=== PATIENT | female | born 1985 | race Two or more races ===

== ENCOUNTER 2024-10-07 07:25 | Day surgery (SDC) | payer BC, SELFPAY ==
--- NOTE | 2024-10-02 10:38 | ESHP_ITS ---
RE: MIKO GAMEZ : 1985 DATE OF ADMISSION: 10/14/2024 HISTORY OF PRESENT ILLNESS: This is a 39-year-old gravity 4, para 2-0-2-2 with abnormal uterine bleeding and endometrial polyp who presents for polyp removal and endometrial ablation. The patient has had significant episodes of severe anemia due to her heavy bleeding and this has required blood transfusions in the emergency room setting. She has tried conservative medical management and this has failed to control her bleeding. ALLERGIES: ACCRUFER. MEDICATIONS: 1. Jolessa control pill 1 p.o. daily. 2. Ibuprofen 600 mg 1 p.o. q. 6 hours p.r.n. dysmenorrhea. 3. Ferrous sulfate 325 mg 1 p.o. b.i.d. 4. Ozempic 0.25 mg subcutaneously weekly, discontinued 1 week prior to surgery. PAST MEDICAL HISTORY: Asthma, type 2 diabetes, severe anemia, endometriosis, endometrial polyp. SOCIAL HISTORY: She is . She denies any alcohol drug use or smoking. FAMILY HISTORY: Mother has type 2 diabetes. OBSTETRIC HISTORY: In 2007, 40-week normal vaginal delivery, 6 pounds 7-ounce female, no complications. In 2011, 40-week normal vaginal delivery, 8-pound male, no complications. PAST SURGICAL HISTORY: Denies. REVIEW OF SYSTEMS: She denies any chest pain, palpitations, cough, fever, shortness of breath, or lower extremity pain. PE:see addendum dictation. ASSESSMENT AND PLAN: Abnormal uterine bleeding, Endometrial polyp, Dysmenorrhea, Failed medical management, Episodic Severe Anemia. Hysteroscopy, Myosure removal of endometrial polyp(s), Fractional Dilation and Curettage, Novasure Endometrial Ablation. Consent Obtained. She is aware of the risk of injury to bowel or bladder, uterus, adjacent organs, pulmonary embolism, deep vein thrombosis, pelvic infection, reoperation, repair injury to internal organs, anesthesia complications, the possibility that a laparotomy needs to be performed to repair organs or controlled bleeding and the possibility that the procedure is not able to be completed due to severe adhesions or technical difficulties. She verbalized understanding and agrees to proceed with the procedure with an understanding of the risks and complications. DT: 10:12:30 TT: 10:35:00 Ref: [id number] - TID: [id number] MTDD
[2024-10-06 07:24] VITALS: BMI 41.5
[2024-10-06 08:23] LABS: Basophils % (Auto) 0 % (0-2.5); Eosinophils # (Auto) 0.3 Thou/mm3 (0.0-0.5); Eosinophils % (Auto) 3 % (0-10); Hematocrit 37.1 % (36.0-46.0); Hemoglobin 10.9 g/dL (12.0-16.0); Immature Granulocytes % (Auto) 0 % (0-0); Immature Granulocytes Auto 0.01 Thou/mm3 (0.00-0.00); Lymphocytes # (Auto) 1.9 Thou/mm3 (1.0-4.8); Lymphocytes % (Auto) 23 % (10-50); Mean Corpuscular HGB Conc 29.4 g/dl (31.0-37.0); Mean Corpuscular Volume 75 fL (80-100); Monocytes # (Auto) 0.4 Thou/mm3 (0.0-0.8); Monocytes % (Auto) 5 % (0-12); Neutrophils # (Auto) 5.5 Thou/mm3 (1.8-7.7); Neutrophils % (Auto) 68 % (37-80); Nucleated Red Blood Cell % 0 /100 WBC (0); Platelet Count 268 Thou/mm3 (140-440); RDW Standard Deviation 48.7 fL (36.4-46.3); Red Blood Count 4.96 Miln/mm3 (4.00-5.20)
[2024-10-06 08:29] LABS: Partial Thromboplastin Time 27.1 Seconds (22.0-36.0); Prothrombin Time 10.7 Seconds (9.0-12.2)
[2024-10-06 08:43] LABS: Alanine Aminotransferase 33 U/L (10-49); Albumin, Serum 4.4 gm/dL (3.5-5.0); Albumin/Globulin Ratio 1.5 (1.2-2.2); Alkaline Phosphatase 120 U/L (46-116); Anion Gap 9 (7-16); Aspartate Amino Transferase 28 U/L (0-34); BUN/Creatinine Ratio 13 Ratio (12-20); Beta HCG,Quantitative < 1 mIU/mL (<5.0); Bilirubin,Total 0.2 mg/dL (0.3-1.2); Blood Urea Nitrogen 8 mg/dL (9-23); Calcium 9.1 mg/dL (8.3-10.6); Calcium (Corrected) 9.1 mg/dL (8.5-10.1); Carbon Dioxide 22.6 mMol/L (20.0-31.0); Chloride 106 mMol/L (98-107); Creatinine (Component) 0.6 mg/dL (0.6-1.3); Estimated Creatinine Clearance 136.2 mL/min (>60); Globulin 2.9 gm/dL (2.3-3.5); Glucose 150 mg/dL (74-106); Osmolality,Calculated 276 (275-295); Potassium 3.9 mMol/L (3.4-5.1); Sodium 138 mMol/L (136-145); Total Protein 7.3 gm/dL (5.7-8.2); eGFR > 60 See Note
[2024-10-07] VITALS (8 sets, daily range): BP systolic 113–146; BP diastolic 72–93; PULSE 79–88; RESP 16–20; TEMP 36.3–36.6; O2SAT 95–100; BMI 42.6
--- NOTE | 2024-10-07 06:53 | PD.GYNHP ---
Documentation for date of: 10/07/24 ELECTRONICS ENGINEERING TECHNICIAN - HPI History of Present Illness History of present illness: [address] [id number] History and Physical Report Author: Abhilash Sandoval: MIKO GAMEZ : 1985 DATE OF ADMISSION: 10/07/2024 HISTORY OF PRESENT ILLNESS: This is a 39-year-old gravity 4, para 2-0-2-2 with abnormal uterine bleeding and endometrial polyp who presents for polyp removal and endometrial ablation. The patient has had significant episodes of severe anemia due to her heavy bleeding and this has required blood transfusions in the emergency room setting. She has tried conservative medical management and this has failed to control her bleeding. ALLERGIES: ACCRUFER. MEDICATIONS: 1. Jolessa control pill 1 p.o. daily. 2. Ibuprofen 600 mg 1 p.o. q. 6 hours p.r.n. dysmenorrhea. 3. Ferrous sulfate 325 mg 1 p.o. b.i.d. 4. Ozempic 0.25 mg subcutaneously weekly, discontinued 1 week prior to surgery. PAST MEDICAL HISTORY: Asthma, type 2 diabetes, severe anemia, endometriosis, endometrial polyp. SOCIAL HISTORY: She is . She denies any alcohol drug use or smoking. FAMILY HISTORY: Mother has type 2 diabetes. OBSTETRIC HISTORY: In 2007, 40-week normal vaginal delivery, 6 pounds 7-ounce female, no complications. In 2011, 40-week normal vaginal delivery, 8-pound male, no complications. PAST SURGICAL HISTORY: Denies. REVIEW OF SYSTEMS: She denies any chest pain, palpitations, cough, fever, shortness of breath, or lower extremity pain. PE:see addendum dictation. ASSESSMENT AND PLAN: Abnormal uterine bleeding, Endometrial polyp, Dysmenorrhea, Failed medical management, Episodic Severe Anemia. Hysteroscopy, Myosure removal of endometrial polyp(s), Fractional Dilation and Curettage, Novasure Endometrial Ablation. Consent Obtained. She is aware of the risk of injury to bowel or bladder, uterus, adjacent organs, pulmonary embolism, deep vein thrombosis, pelvic infection, reoperation, repair injury to internal organs, anesthesia complications, the possibility that a laparotomy needs to be performed to repair organs or controlled bleeding and the possibility that the procedure is not able to be completed due to severe adhesions or technical difficulties. She verbalized understanding and agrees to proceed with the procedure with an understanding of the risks and complications. DT: 10:12:30 TT: 10:35:00 Ref: [id number] - TID: [id number] CC: ; ~ Dictated by:Abhilash Sandoval MD 10/02/24 1012 E-signed by:Abhilash Sandoval MD 10/02/24 1051 E-Signed by: E-Signed by: REPORT NO:[id number] Meds Home Medications and Allergies Home Medications ?Medication ?Instructions ?Recorded ?Confirmed ?Type albuterol sulfate 90 mcg/actuation 2 puff inhalation Q4H PRN 10/06/24 10/06/24 History aerosol inhaler shortness of breath or wheezing ferrous sulfate 325 mg (65 mg 325 mg PO BID 10/06/24 10/06/24 History iron) tablet ibuprofen 600 mg tablet 600 mg PO Q8H PRN pain 10/06/24 10/06/24 History levonorgestrel 0.15 mg-ethinyl 1 tab PO QDAY 10/06/24 10/06/24 History estradiol 30 mcg tablets,3 mos pack(91) metformin 500 mg tablet 500 mg PO BID 10/06/24 10/06/24 History semaglutide 0.25 mg or 0.5 mg (2 0.25 mg subcut QWEEK 10/06/24 10/06/24 History mg/3 mL) subcutaneous pen injector (Ozempic) Allergies Allergy/AdvReac Type Severity Reaction Status Date / Time No Known Allergies Allergy Verified 10/06/24 07:18 ELECTRONICS ENGINEERING TECHNICIAN - Results Labs 10/06/24 07:57 10/06/24 07:57 Labs: Short CBC 10/06/24 Range/Units 07:57 WBC 8.0 (3.6-11.0) Thou/mm3 Hgb 10.9 L (12.0-16.0) g/dL Hct 37.1 (36.0-46.0) % Plt Count 268 (140-440) Thou/mm3 BMP 10/06/24 07:57 Sodium 138 Potassium 3.9 Chloride 106 Carbon Dioxide 22.6 BUN 8 L Creatinine 0.6 Glucose 150 H Calcium 9.1 Liver Function 10/06/24 Range/Units 07:57 Total Bilirubin 0.2 L (0.3-1.2) mg/dL AST 28 (0-34) U/L ALT 33 (10-49) U/L Alkaline Phosphatase 120 H (46-116) U/L Albumin 4.4 (3.5-5.0) gm/dL Quality Measures Quality Measures VTE prophylaxis
--- NOTE | 2024-10-07 13:30 | SUR.PHASEI ---
pt received from OR in recovery bay 1. pt asleep but responds to voice, breathing unlabored on 6l oxymask. v/s stable. pt dressing peripad cdi. report received from Dr. Clemons and Ge ALEJANDRA.
[2024-10-07] MEDS: ONDANSETRON INJ 2 MG/ML INJ 2 ML 4 MG IV (13:54)
[2024-10-07] MEDS: fentaNYL CIT INJ 50 mCg/ML AMP 2ML 25 MCG IV ×2 (13:55→14:22)
[2024-10-07] MEDS: ACETAMINOPHEN IVPB 1,000 MG/100 ML VIAL 250 MG IV (14:02)
--- NOTE | 2024-10-07 14:19 | SUR.PHASEII ---
pt able to tolerate oral fluids without difficulty swallowing or nausea/vomiting.
--- NOTE | 2024-10-07 14:50 | SUR.PHASEII ---
pt awake and alert, breathing unlabored on room air. v/s stable. pt dressing peripad cdi. pt able to ambulate to wheelchair with steady gait. d/c instructions given with Ferro in room, all questions answered. pt d/c via wheelchair with all belongings.
--- NOTE | 2024-10-07 14:52 | SUR.OPER ---
Endometrial Ablation: uterine sound: 10cm cervical length: 3.5cm cavity length: 6.5cm cavity width: 3.6cm power settinwatts duration: 55seconds
--- NOTE | 2024-10-09 15:28 | ESOP_ITS ---
RE: MIKO GAMEZ : 1985 DATE OF OPERATION: 10/07/2024 PREOPERATIVE DIAGNOSES: Abnormal uterine bleeding, dysmenorrhea, iron deficiency anemia, endometrial polyp, and failed medical management. POSTOPERATIVE DIAGNOSES: Abnormal uterine bleeding, dysmenorrhea, iron deficiency anemia, endometrial polyp, and failed medical management. PROCEDURES PERFORMED: Hysteroscopy, MyoSure removal of endometrial polyps, fractional dilatation and curettage, and NovaSure endometrial ablation. SURGEON: Abhilash Sandoval DO. SAWSMITH: None. ANESTHESIA: General. ANESTHESIOLOGIST: Zak Clemons MD. ESTIMATED BLOOD LOSS: 25 mL. COMPLICATIONS: None. COUNTS: Correct. PATHOLOGY: 1. Endometrial tissue with endometrial polyp. 2. Endocervical curettings. 3. Endometrial curettings. FINDINGS: A uterus sounded to 10.0 cm, anteverted. A cervical length of 3.5 cm. Uterine cavity length is 6.5 cm. Uterine cavity width is 3.7 cm. Power setting is 127 wagner. Duration of ablation is 55 seconds. Fluids absorbed hysteroscopically. Normal saline 200 mL. Polypoid endometrial cavity in all 4 quadrants. Hypertrophic anterior lip of the cervix. No submucous myomas. DESCRIPTION OF PROCEDURE: After appropriate informed consent was obtained and the patient was made aware of the risks, complications, alternatives, and benefits of the proposed procedure, she was taken to the operating room where she underwent induction of general anesthesia. She was placed in the dorsal lithotomy position. She was prepped and draped in the usual sterile fashion. The Aquilex system was primed. Using the uterine sound, the uterus was sounded to 10.0 cm, anteverted. The cervical length was measured at 3.5 cm. The cervix was dilated to accommodate the 5.5 mm Omni hysteroscope. The hysteroscope was then utilized to visualize the endocervix and uterine cavity. The MyoSure Reach device was then utilized to remove the polypoid endometrial tissue in all 4 quadrants and specimen sent to pathology. The endocervix was curetted and specimen sent to pathology. The uterine cavity was curetted and specimen sent to pathology. The NovaSure catheter was plugged into the controller and went through its purge cycle. A 6.5 cm was entered on the cavity length and 3.6 cm was the cavity width as the catheter was appropriately seated in the uterine cavity. The power setting read 129 wagner. Duration of ablation was 55 seconds. The ablation was performed for 55 seconds and the controller shut off. The array was retracted into the sheath and redeployed and found to be completely intact. There was no bleeding at the end of the procedure. All instruments were removed from the vagina. She was reversed from general anesthesia in the supine position and transferred to the recovery room in stable condition. She tolerated the procedure well. Counts were correct. I discussed with the patient's the nature of her condition, intraoperative findings, and expectation for recovery. All questions answered. DT: 13:48:15 TT: 17:46:00 Ref: [id number] - TID: [id number]
== END 2024-10-07 14:50 | disposition home or self-care (01) ==
PROVIDERS: Referring Provider Specialist; Visit Provider Specialist
PROC: 0U5B8ZZ Destruction of Endometrium, Via Natural or Artificial Opening Endoscopic (ICD-10-PCS; CPT 58563; principal; 2024-10-07 09:45)
DX: N84.0 Polyp of corpus uteri (principal); N85.8 Other specified noninflammatory disorders of uterus; D50.9 Iron deficiency anemia, unspecified; E11.9 Type 2 diabetes mellitus without complications; J45.909 Unspecified asthma, uncomplicated
CPT/HCPCS: 58563; 36415; 80053; 84702; 85025; 85610; 85730; 86850; 86900; 86901; A4217; A4649; J0131; J1100; J2250; J2405; J2598; J2704; J3010